=== PATIENT | female | born 1965 | race Caucasian/White ===

== ENCOUNTER 2017-08-14 07:54 | Emergency (ER) | payer MEDICAID ==
[~2017-08-14] VITALS: Ht 160 cm; Wt 64.4 kg
[2017-08-14 07:57] VITALS: BP 182/103
--- NOTE | 2017-08-14 08:02 | NUR ---
PT AMBULATED TO BED 12
--- NOTE | 2017-08-14 08:14 | NUR ---
PT C/O RT UPPER QUADRANT ABD PAIN WITH N/V SINCE THIS MORNING. AREA TENDER TO PALPATE. NO BRUISING OR DISTENSTION OBSERVED. DENIES CP SOB OR DIZZINESS. PLACED ON ALL MONITORS, MD AT BEDSIDE TO [facility]
[2017-08-14] MEDS ORDERED: NACL 0.9% 1,000 ML IV SCH (08:17)
[2017-08-14] MEDS ORDERED: KETOROLAC 30 MG/ML VIAL IVP ONE (08:20)
[2017-08-14] MEDS ORDERED: ONDANSETRON 4 MG/2 ML VIAL IVP ONE (08:20)
[2017-08-14 08:38] LABS: BASOPHILS % (AUTO) 0.4 % (0.0-2.0); EOSINOPHILS % (AUTO) 0.2 % (0.0-4.0); HEMATOCRIT 40.1 % (36-48); HEMOGLOBIN 13.5 g/dL (12.0-16.0); LYMPHOCYTES # (AUTO) 1.4 K/uL (2.5-16.5); LYMPHOCYTES % (AUTO) 14.8 % (20.5-51.1); MEAN CORPUSCULAR HEMOGLOBIN 29 pg (27-31); MEAN CORPUSCULAR HGB CONC 34 g/dL (33-37); MEAN CORPUSCULAR VOLUME 85.8 fL (80-94); MONOCYTES # (AUTO) 0.4 K/uL (0.8-1.0); MONOCYTES % (AUTO) 3.8 % (1.7-9.3); NEUTROPHILS # (AUTO) 7.7 K/uL (1.8-7.7); NEUTROPHILS % (AUTO) 80.8 % (42.2-75.2); PLATELET COUNT (AUTO) 238 K/uL (140-450); RED BLOOD CELL COUNT(AUTO) 4.67 MIL/uL (4.20-5.40); RED CELL DISTRIBUTION WIDTH 13.7 % (11.6-13.7); WHITE BLOOD COUNT (AUTO) 9.5 K/uL (4.8-10.8)
[2017-08-14] MEDS ORDERED: MORPHINE SULFATE 2 MG/ML SYR IVP ONE (08:45)
[2017-08-14 08:47] LABS: ANION GAP 15.4 (8-16); CARBON DIOXIDE 23.2 mmol/L (21-32); CREATININE 0.8 mg/dL (0.6-1.3); POTASSIUM 3.6 mmol/L (3.5-5.1)
[2017-08-14] MEDS ORDERED: MORPHINE SULFATE 4 MG/ML SYR ONE ×2 (08:51→09:59)
[2017-08-14 08:53] LABS: ALBUMIN 3.9 g/dL (3.4-5.0); TOTAL BILIRUBIN 0.3 mg/dL (0.0-1.0)
[2017-08-14 08:54] LABS: APPEARANCE,URINE CLEAR (CLEAR); BILIRUBIN,URINE NEGATIVE (NEGATIVE); BLOOD, URINE 2+ (NEGATIVE); COLOR,URINE YELLOW (YELLOW); LEUKOCYTE ESTERASE ,URINE NEGATIVE (NEGATIVE); NITRITE, URINE POSITIVE (NEGATIVE); UGLUCOSE NEGATIVE (NEGATIVE)
--- NOTE | 2017-08-14 08:55 | NUR ---
PT MEDICATED PER ORDER, NOW PRESENTING WITH DECREASED PAIN. PT STATES "THE PAIN IS LESS SEVERE NOW." PENDING LABS
[2017-08-14 09:51] LABS: RBC,URINE 0-5 (RARE) /HPF (0-5); URIC ACID CRYSTALS,URINE 0-10 /HPF (None Seen); WBC,URINE 0-5 (RARE) /HPF (0-5)
[2017-08-14] MEDS ORDERED: MORPHINE SULFATE 4 MG/ML SYR IVP ONE (09:55)
--- NOTE | 2017-08-14 10:17 | NUR ---
PT RETURNED FROM XRAY Addendum: 08/14/17 at 1017 by [facility] PT RETURNED FROM CT
--- NOTE | 2017-08-14 11:01 | NUR ---
Patient appears to be resting comfortably in bed. Vital Signs within normal limits. Respirations even and unlabored. Pt reports pain level decreased to 4/10 at this time.
[2017-08-14 12:01] VITALS: BP 133/74
--- NOTE | 2017-08-14 12:02 | NUR ---
Patient discharged with v/s stable. Written and verbal after care instructions given and explained. Patient alert, oriented and verbalized understanding of instructions. Ambulatory with steady gait. All questions addressed prior to discharge. ID band removed. Patient advised to follow up with PMD. Rx of ZOFRAN, NORCO, NAPROSYN, FLOMAX given. Patient educated on indication of medication including possible reaction and side effects. Opportunity to ask questions provided and answered.
== END 2017-08-14 12:02 | disposition home or self-care (01) ==
LOC: MED 07:54
DX: N20.1 Calculus of ureter (principal); R03.0 Elevated blood-pressure reading, without diagnosis of hypertension; Z88.0 Allergy status to penicillin
CPT/HCPCS: 36415; 74176; 76705; 80053; 81001; 81025; 83605; 83690; 85025; 87040; 96361; 96374; 96375; 96376; 99285; J1885; J2270; J2405; J7030; Q0092